=== PATIENT | male | born 1985 | race Caucasian/White ===

== ENCOUNTER 2019-07-02 12:00 | Emergency (ER) | payer OTHER ==
[~2019-07-02] VITALS: Ht 177.8 cm; Wt 93.4 kg
--- NOTE | 2019-07-02 12:09 | NUR ---
PT IS IN ROOM #1B. DR FOLEY EVALUATED THE PT.
[2019-07-02] MEDS ORDERED: LORAZEPAM 1 MG TABLET ONE (12:29)
[2019-07-02] MEDS ORDERED: LORAZEPAM 0.5 MG TABLET PO ONE (12:30)
--- NOTE | 2019-07-02 13:19 | NUR ---
PT WAS D/C'd TO HOME. D/C INSTRUCTIONS GIVEN TO THE PT. GAIT IS STABLE. NO S/S OF DISTRESS AT THIS TIME.
[2019-07-02 13:20] VITALS: BP 136/89
== END 2019-07-02 13:44 | disposition home or self-care (01) ==
LOC: ER 12:00
DX: S00.03XA Contusion of scalp, initial encounter (principal); F41.9 Anxiety disorder, unspecified; V43.52XA Car driver injured in collision with other type car in traffic accident, initial encounter; Y93.89 Activity, other specified; Y92.89 Other specified places as the place of occurrence of the external cause; Y99.8 Other external cause status
CPT/HCPCS: 70450; 71045; A4663